=== PATIENT | female | born 1955 | race Caucasian/White ===

== ENCOUNTER → 2017-01-09 | Day surgery (SDC) | payer OTHER ==
[~2017-01-09] VITALS: Ht 154.9 cm; Wt 97.8 kg
[~2017-01-09] MED LIST: BENICAR HCT 401 EAC1 PO; COLACE100 MG PO; CRESTOR5 MG PO; DESENEX85 GM TOP; DEXILANT60 MG PO; DILAUDID 2MG(HYD2 MG PO; DIOCTO (= CO10 MG/ML PO; EYE DROPS15 M1 OPHTH; EYE DROPS15 ML OPTH; FEOSOL325 MG PO; LEVOTHROID (S100 MCG PO; LOTRISONE15 GM TOP; MILK OF MA400 MG/5 M PO; MIRALAX17 GM PO; NEXIUM40 MG PO; SALINE NASAL SP88 ML NAS; TEKTURNA150 MG PO; TRIACET 0.1 CRE15 GM TOP; TYLENOL EXTRA500 MG PO; VALIUM5 MG PO; VITAMIN D2000 UNIT PO; XARELTO10 MG PO; ZOFRAN4 MG PO; [UNRECOGNIZED DRUG - OTHER] PO
--- NOTE | ~2017-01-09 | OR ---
PATIENT'S NAME: ERICK GUADALUPE [facility] AGE: 61 Y [address] ROOM: [place] [address] LOCATION: GEND ADMIT DATE: 01/09/2017 OR/Procedure Report DISCHARGE DATE: FAMILY PHYSICIAN: MEGAN GAMBINO MD ATTENDING PHYSICIAN: MEGAN GAMBINO SURGEON: Gris Osorio MD COLOR DEPOSITING MACHINE TENDER: DATE OF PROCEDURE: 01/09/2017 PROCEDURE: Colonoscopy with polypectomy. INDICATION: Screening. MEDICATIONS: Please see anesthesiology record for details. CONSENT: The risks/benefits/alternatives were discussed and the patient or her power of assembler watch train expressed understanding and agreed to proceed. Informed consent was obtained and placed on the chart. Time-out was completed prior to starting the procedure. PROCEDURE: Patient was placed in the left lateral decubitus position. One lead EKG monitoring was used along with intermittent blood pressure monitoring and pulse oximetry. The above medications were given and titrated to response. Once adequate sedation was completed, rectal exam was performed. The colonoscope was then passed through the rectum, into the sigmoid colon. The scope was then passed through the descending, transverse and ascending colon. The scope was then passed into the cecum. The cecum was identified by the ileocecal valve and appendiceal orifice. The scope was then withdrawn. On withdrawal, the mucosa of the colon was examined. In the rectum, retroflexion was completed. The scope was then withdrawn from the patient. The patient tolerated the procedure well. There were no complications. SUMMARY FINDINGS: 1. Two sessile polyps in the descending colon, ranging from 2 to 4 mm were removed using snare without cautery. The 2 mm polyp was not retrieved. 2. Diverticulosis, mainly in the sigmoid colon. 3. Internal hemorrhoids, small and nonbleeding. ASSESSMENT AND PLAN: Screening colonoscopy: The patient had two polyps were removed. I would recommend a repeat exam in 5 years, even if the polyp returns as hyperplastic polyp, when that was not retrieved as likely an adenoma. PATIENT'S NAME: ERICK GUADALUPE [facility] AGE: 61 Y [address] ROOM: [place] [address] LOCATION: GEND ADMIT DATE: 01/09/2017 OR/Procedure Report DISCHARGE DATE: FAMILY PHYSICIAN: MEGAN GAMBINO MD ATTENDING PHYSICIAN: MEGAN GAMBINO J CHEYENNE OSORIO MD JRT/modl /[id number] d: 01/09/17 1205 t: 01/11/17 1358, OPERATIVE SUMMARY
--- NOTE | ~2017-01-09 | OR ---
PATIENT'S NAME: ERICK GUADALUPE [facility] AGE: 61 Y [address] ROOM: [place] [address] LOCATION: [facility] ADMIT DATE: 01/09/2017 OR/Procedure Report DISCHARGE DATE: FAMILY PHYSICIAN: MEGAN GAMBINO MD ATTENDING PHYSICIAN: MEGAN GAMBINO SURGEON: Gris Osorio MD FITNESS MANAGEMENT DIRECTOR: DATE OF PROCEDURE: 01/09/2017 PROCEDURE PERFORMED: Esophagogastroduodenoscopy with biopsies. INDICATIONS: Dysphagia. MEDICATIONS: Please see anesthesiology record for details. CONSENT: The risks/benefits/alternatives were discussed, and the patient or her power of commercial real estate attorney expressed understanding and agreed to proceed. Informed consent was obtained and placed in the chart. Time-out was completed prior to starting the procedure. DESCRIPTION OF PROCEDURE: The patient was placed in the left lateral decubitus position. One-lead EKG monitoring was used along with intermittent blood pressure monitoring and pulse oximetry. Bite block was placed in the patient's mouth. The above medications were given and titrated to response. Once adequate sedation was completed, the endoscope was passed through the patient's mouth into the posterior oropharynx. The endoscope was then passed into the esophagus, stomach, and duodenal bulb. The duodenum was examined through the third portion. The endoscope was then withdrawn into the stomach. In the stomach, retroflexion was completed. The scope was then straightened and withdrawn from the patient. The patient tolerated the procedure well. There were no complications. SUMMARY OF FINDINGS: 1. Normal esophagus. No evidence of stricture or ring, status post biopsies from the midesophagus to evaluate for eosinophilic esophagitis. 2. Stomach filled with polyps, greater than 50 polyps seen, those of which were greater than 1 cm were biopsied. A couple of polyps were inflamed and had some bright red blood in the area. 3. Normal duodenum. ASSESSMENT AND PLAN: 1. Dysphagia: Nothing seen on esophagogastroduodenoscopy to explain the patient's symptoms. We will await biopsies for further recommendations. If biopsies are negative and symptoms persist, could consider manometry study. PATIENT'S NAME: ERICK GUADALUPE [facility] AGE: 61 Y [address] ROOM: [place] [address] LOCATION: [facility] ADMIT DATE: 01/09/2017 OR/Procedure Report DISCHARGE DATE: FAMILY PHYSICIAN: MEGAN GAMBINO MD ATTENDING PHYSICIAN: MEGAN GAMBINO 2. Gastric polyps. The patient had greater than 50 polyps on exam today, some of which were pedunculated and greater than 1 cm. No polyps were resected completely. Several were biopsied. Even hyperplastic polyps in the stomach do have some malignant potential when greater than 1 cm. Therefore, recommend an esophagogastroduodenoscopy in one year, earlier if there is any dysplasia on the biopsies. J CHEYENNE OSORIO MD JRT/modl /[id number] d: 01/09/17 1208 t: 01/11/17 1401, OPERATIVE SUMMARY
== END | disposition disaster alternative care site (69) ==
LOC: GPOC 01-04 09:00 → GEND 07:37
PROC: 0DBM8ZZ Excision of Descending Colon, Via Natural or Artificial Opening Endoscopic (ICD-10-PCS; principal; 2017-01-09)
PROC: 0DB68ZX Excision of Stomach, Via Natural or Artificial Opening Endoscopic, Diagnostic (ICD-10-PCS; 2017-01-09)
DX: Z12.11 Encounter for screening for malignant neoplasm of colon (principal); K63.5 Polyp of colon; K31.7 Polyp of stomach and duodenum; R13.10 Dysphagia, unspecified; F41.9 Anxiety disorder, unspecified; K57.30 Diverticulosis of large intestine without perforation or abscess without bleeding; E66.01 Morbid (severe) obesity due to excess calories; E78.5 Hyperlipidemia, unspecified; I10 Essential (primary) hypertension; M19.071 Primary osteoarthritis, right ankle and foot; Z98.890 Other specified postprocedural states; Z79.899 Other long term (current) drug therapy
CPT/HCPCS: J7030

== ENCOUNTER → 2017-04-27 | Outpatient (CLI) | payer OTHER ==
--- NOTE | ~2017-04-27 | ESTC ---
Cardiac Perfusion Imaging Demographics Patient Name ANAYELI Landry Gender Female Patient Number [id number] Race Visit Number [id number] Ethnicity Corporate ID Room Number Accession Number [id number] Height 61 inches Date of 1955 Weight 215 pounds Axel Villalpando Date of study 04/27/2017 Physician Celestine Supervising /JACEK Villalpando NM Technologist Jigna Sprague Ordering Physician Oswaldo Unger MD Stress vibration technician Stress ECG Reading Ragini Nurse Denisa Landry Physician Celestine Russo Procedure Procedure Type: Nuclear Stress Test:Pharmacological, Cardiolite Stress Test Procedure Start time: 04/27/2017 00:00 Indications: Angina. Risk Factors The patient risk factors include:obesity, treated hypercholesterolemia, treated hypertension, family history of premature CAD and dyslipidemia. Conclusions Summary Perfusion Images: The overall quality of the study is fair, due to soft tissue attenuation . Left ventricular cavity is noted to be normal on the stress and rest studies. There is no evidence of abnormal lung activity. The right ventricle is not visualized and cannot be assessed. Stress SPECT images and Rest SPECT images demonstrate homogenous tracer distribution throughout the myocardium except for minimal decrease in tracer uptake in the mid to distal anterior wall on stress images. Gated SPECT imaging reveals normal myocardial thickening and wall motion. The left ventricular ejection fraction was calculated to be 63%. Impression ECG portion of the stress test is clinically negative for ischemia by diagnostic criteria. Images reveal a medium sized area of minimal anterior wall ischemia. Gated wall motion is normal with LVEF 63%. This is a low risk stress test. Stress Protocols Resting ECG Sinus rhythm. Pre-stress physical exam: Patient assessed by Dr Villalpando prior to testing. Predicted HR: 159 bpm ECG Findings Non specific ST-T wave changes Arrhythmias No rhythm abnormality. Symptoms Shortness of breath. Stress Interpretation Appropriate hemodynamic response to Lexiscan. No significant ST-T wave changes with Lexiscan. ECG portion is negative for ischemia by diagnostic criteria. Imaging Results Summed scores - Summed stress score: 0 - Summed rest score: 3 - Summed difference score: -3 Stress ejection Ejection fraction:63 % EDV :126 ml ESV :46 ml Stroke volume :80 ml LV mass :161 gr Imaging Protocols Rest Stress Isotope:Tc99m Sestamibi IV Isotope: Tc99m Sestamibi IV Isotope dose:15.7 mCi Isotope dose:48.9 mCi Date:04/27/2017 07:30 Date:04/27/2017 09:37 Technique: SPECT Technique: Gated Supine SPECT Supine Scan Time:45-60 minutes post Scan Time:45-60 minutes post injection injection Procedure Medications - Regadenoson (Lexiscan) 0.4 mg IV over 10-15 sec. I.V. 0.4 mg. Medical History Admission Data Admission date: 04/27/2017 Admission Time: 07:04 Hospital Status: Outpatient. Signatures dtt: CELESTINE VILLALPANDO dtd: 04/27/17 0000 Physician Self Edit
== END | disposition disaster alternative care site (69) ==
LOC: GRAD 07:04
DX: I20.9 Angina pectoris, unspecified (principal); M79.602 Pain in left arm; I25.89 Other forms of chronic ischemic heart disease; E78.00 Pure hypercholesterolemia, unspecified; I10 Essential (primary) hypertension; E78.5 Hyperlipidemia, unspecified; E66.9 Obesity, unspecified; R68.84 Jaw pain; Z82.49 Family history of ischemic heart disease and other diseases of the circulatory system
CPT/HCPCS: A9500; J2785